=== PATIENT | male | born 1960 | race Caucasian/White ===

== ENCOUNTER 2018-06-27 22:45 | Observation (INO) ==
[2018-06-27] MEDS ORDERED: 0.9 % Sodium Chloride 1,000 ML IVC ONE (23:01)
--- NOTE | 2018-06-27 23:05 | Emergency Department Note ---
Disposition Clinical Impression: Syncope Qualifiers: Syncope type: unspecified Qualified Code(s): R55 - Syncope and collapse Disposition: Admitted As Inpatient Condition: Fair Forms: ED Satisfaction Letter Time of Disposition: 00:32 Dizziness HPI - General Chief Complaint: ED Syncope Stated Complaint: Black out spells. Time Seen by Provider: 06/27/18 22:50 Source: patient Mode of arrival: ambulatory Limitations: no limitations Nursing Notes Reviewed: Yes Vital Signs Reviewed: Yes - History of Present Illness HPI Narrative: Patient presents to ED with the chief complaint of syncope. Patient states this is been ongoing over the last several years, but is becoming progressively more frequent. States he has had 4 episodes of the last 48 hours. He had 2 episodes last week, so he saw his primary care physician who obtained an EKG and stated it was abnormal, so they sent him to cardiology, who evaluated him and agreed that it was abnormal, so they set him up for a stress test and echocardiogram on the . Patient reports that he was told not to drive until then. 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 He states that they were out eating dinner tonight and he felt an episode come on where he felt like he was going to pass out but did not. The son states about 20 minutes later he actually did have a brief 2-3 second syncopal episode with some shaking of his upper extremity. He woke up immediately after, was not postictal or confused. No witnessed seizure activity. Patient denies any chest pain or shortness of breath before or after the event. He states he does not remember passing out. This time. No head injury. Associated with the event. States he actually feels fine now. No fever or chills, chest pain or shortness of breath. No abdominal pain. No nausea, vomiting or diarrhea. No rashes. Review of Systems: As reviewed in the HPI. All other systems reviewed are negative or normal. Past Medical History - Past Medical History Attestation: Yes The following information was validated with the patient. Source: patient Physical Exam CONSTITUTIONAL: [well appearing, alert and in no acute distress] EYES: [EOMI, clear conjunctiva, PERRLA] HENT: [Normocephalic, atraumatic, moist mucus membranes, normal oropharynx] NECK: [normal inspection, full ROM, trachea midline, no obvious swelling] PULMONARY: [normal lung sounds bilaterally, normal chest rise and fall, no respiratory distress or stridor, no wheezes, no rales, no rhonchi CARDIOVASCULAR: [regular rate, regular rhythm, normal heart sounds, no murmurs, distal extremities are warm and well perfused, no carotid bruits] GASTROINSTESTINAL: [soft, non-tender, non-rigid, non-distended, no guarding, no rebound, normal bowel sounds] GENITOURINARY/RECTAL: [deferred] NEUROLOGIC: [Alert, oriented x3, normal speech, moves all extremities] EXTREMITIES: [Normal inspection, full ROM, no tenderness, no pedal edema, normal capillary refill] MUSCULOSKELETAL: [no gross deformities, atraumatic] SKIN: [No cyanosis, no diaphoresis, normal color, warm, no rash] PSYCHIATRIC: [normal mood and affect] Course Vital Signs Temperature 97.7 F 06/27/18 22:49 Pulse Rate 126 06/27/18 22:49 Respiratory Rate 18 06/27/18 22:49 Blood Pressure 148/87 06/27/18 22:49 O2 Sat by Pulse Oximetry 97 06/27/18 22:49 Temperature 97.7 F 06/27/18 23:19 Pulse Rate 106 06/27/18 23:28 Respiratory Rate 18 06/27/18 23:19 Blood Pressure 117/77 06/27/18 23:28 O2 Sat by Pulse Oximetry 97 06/27/18 23:19 Oxygen Delivery Oxygen Delivery Room Air Dizziness - Lab Data Result diagrams: 06/27/18 23:10 06/27/18 23:10 Lab Results 06/27/18 06/27/18 Range/Units 23:10 23:10 WBC 8.2 (4.3-11.1) K/mcL RBC 5.05 (4.19-5.50) M/mcL Hgb 14.8 (12.9-16.9) g/dL Hct 43.9 (37.5-50.1) % MCV 86.9 (83.0-100.0) fL MCH 29.3 (28.0-33.3) pg MCHC 33.7 (31.6-35.5) g/dL RDW 13.4 (11.5-14.5) % Plt Count 252 (140-400) K/mcL MPV 10.8 (9.4-12.4) fL Immature Gran % 0.4 (0-4) % Seg Neutrophils % 63.8 % Lymphocytes % 25.3 % Monocytes % 7.0 % Eosinophils % 2.9 % Basophils % 0.6 % Neutrophils # 5.2 (1.6-8.9) K/mcL Lymphocytes # 2.1 (0.6-4.6) K/mcL Monocytes # 0.6 (0.0-1.3) K/mcL Eosinophils # 0.2 (0.0-0.6) K/mcL Basophils # 0.1 (0.0-0.2) K/mcL Sodium 130 L (136-145) mEq/L Potassium 4.0 (3.5-5.1) mEq/L Chloride 96 L (98-107) mEq/L Carbon Dioxide 26 (23-29) mEq/L BUN 16 (6-20) mg/dL Creatinine 1.07 (0.70-1.30) mg/dL Est GFR ( Amer) > 60 (> 60) Est GFR (Non-Af Amer) > 60 (> 60) BUN/Creatinine Ratio 15 (6-26) Glucose 334 H (70-105) mg/dL Calculated Osmolality 284 (280-300) Calcium 9.3 (8.6-10.3) mg/dL Troponin I < 0.03 (< 0.04) ng/mL
--- NOTE | 2018-06-27 23:06 | Emergency Department Note ---
Disposition Clinical Impression: Syncope Qualifiers: Syncope type: unspecified Qualified Code(s): R55 - Syncope and collapse Disposition: Still a Patient General Adult HPI - General Chief complaint: ED Syncope Stated complaint: Black out spells. Time Seen by Provider: 06/27/18 22:50 Source: patient Nursing Notes Reviewed: Yes Vital Signs Reviewed: Yes - History of Present Illness HPI Narrative: Attestation note: Patient was seen with the emergency medicine resident/nurse practitioner/physician medical support assistant/transitional resident/medical student: Dr. JONATHAN BETTENCOURT I have personally performed a face to face evaluation on this patient. I have reviewed and agree with history and physical examination patient management and disposition. Briefly the salient points of the case are as follows: 57-year-old male presents with "blacking out". 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 Patient is asymptomatic now last time was when he was eating at a local [place] place and "slumped out". There is no trauma patient is awake and alert GCS 15 ambulates appropriately without assistance. Patient is tachycardic 11 EKG screening labs and likely admission. Disposition pending Course Vital Signs Temperature 97.7 F 06/27/18 22:49 Pulse Rate 126 06/27/18 22:49 Respiratory Rate 18 06/27/18 22:49 Blood Pressure 148/87 06/27/18 22:49 O2 Sat by Pulse Oximetry 97 06/27/18 22:49 Temperature 97.7 F 06/27/18 22:49 Pulse Rate 126 06/27/18 22:49 Respiratory Rate 18 06/27/18 22:49 Blood Pressure 148/87 06/27/18 22:49 O2 Sat by Pulse Oximetry 97 06/27/18 22:49 Oxygen Delivery Oxygen Delivery Room Air
[2018-06-28] LABS: BUN/Creatinine Ratio 15 (6-26); Blood Urea Nitrogen 16 mg/dL (6-20); Calcium 9.3 mg/dL (8.6-10.3); Carbon Dioxide 26 mEq/L (23-29); Chloride 96 mEq/L (98-107); Glucose 334 mg/dL (70-105); Osmolality,Calculated 284 (280-300); Sodium 130 mEq/L (136-145); Troponin I < 0.03 ng/mL (< 0.04); eGFR For Non-African Americans > 60 (> 60)
[2018-06-28 00:07] LABS: Basophils # 0.1 K/mcL (0.0-0.2); Basophils % 0.6 %; Eosinophils # 0.2 K/mcL (0.0-0.6); Eosinophils % 2.9 %; Hematocrit 43.9 % (37.5-50.1); Hemoglobin 14.8 g/dL (12.9-16.9); Immature Granulocytes % 0.4 % (0-4); Lymphocytes # 2.1 K/mcL (0.6-4.6); Lymphocytes % 25.3 %; Mean Corpuscular HGB Conc 33.7 g/dL (31.6-35.5); Mean Corpuscular Hemoglobin 29.3 pg (28.0-33.3); Mean Corpuscular Volume 86.9 fL (83.0-100.0); Mean Platelet Volume 10.8 fL (9.4-12.4); Monocytes # 0.6 K/mcL (0.0-1.3); Neutrophils # 5.2 K/mcL (1.6-8.9); Platelet Count 252 K/mcL (140-400); Red Blood Count 5.05 M/mcL (4.19-5.50); Red Cell Distribution Width 13.4 % (11.5-14.5); Segmented Neutrophils % 63.8 %
[2018-06-28 00:38] LABS: Bilirubin,Urine Negative (Negative); Blood,Urine Negative (Negative); Clarity,Urine Clear (Clear); Color,Urine Yellow (Yellow); Glucose,Urine (UA) >=1000 mg/dL (Normal); Ketones,Urine Negative (Negative); Leukocyte Esterase,Urine Negative (Negative); Nitrite,Urine Negative (Negative); Protein,Urine 30 mg/dL (Neg-Trace); Specific Gravity,Urine 1.006 (1.010-1.025); Urobilinogen,Urine Normal (Normal)
[2018-06-28 00:40] LABS: Bacteria,Urine None Seen per hpf (None-Few); Hyaline Casts,Urine None Seen per lpf (None-Few); RBC,Urine 0-3 per hpf (0-3); Squamous Epithelial Cell,Urine None Seen per lpf (None-Few); WBC,Urine 0-3 per hpf (0-3)
[2018-06-28] MEDS ORDERED: Naloxone 0.4 MG/ML INJ IVP PRN (10:09)
--- NOTE | 2018-06-28 10:16 | Internal Med History&Physical ---
Date of Encounter: 06/28/18 Time of Encounter: 08:30 Internal Medicine - H&P: HPI Chief complaint: syncope Admitted From: Home Plans for Post Hospital Care: Home History of present illness: Mr. Acevedo is a 57 year old male with a PMH of obesity and diabetes. He presents to [facility] today following a syncopal event while eating at a restaurant. He has had a total of 3-4 syncopal events over the last 2 weeks. She notes that he has yet to have formal evaluation of syncope. He did note that he was seeing his payroll benefits clerk and primary care provider who wanted to do an echocardiogram and stress test on the of this month. However he is now being admitted for observation for evaluation of recurrent syncopal events. He reports that he was sitting at the table eating dinner and passed out without any prodrome of symptoms. Denies any headaches, dizziness, facial droop, dysarthria, palpitations, tachycardia arrhythmias, chest pain, shortness of breath, diaphoresis, nausea, vomiting, diarrhea, paresthesias or hemiplegia. He denies any aggravating or alleviating factors. He reports that he had a brief loss of consciousness for approximately 2-3 seconds that he does not remember syncopal event. He denies any head trauma. Furthermore, he denies any headaches, confusion, lethargy upon awakening. He is being admitted for workup of syncope and will be placed in observation status. Past Med Surg Social Fam HX - Past Medical History Medical history: diabetes, hyperlipidemia Psychiatric history: no psych history - Social History Smoking Status: Former smoker Smokeless Tobacco Status: No Alcohol use: occasionally Drug use: none - Family History Father Hx Family Cardiac Disorders: Yes (RI, CABG) Hx Family Respiratory Disorders: No Hx Family Cancer: No Hx Family GI Disorders: No Hx Family Genitourinary Disorders: No Hx Family Endocrine Disorder: Yes (DM) Hx Family Musculoskeletal Disorders: No Hx Family Neuromuscular Disorders: No Hx Family Neurologic Disorders: No Hx Family HEENT Disorders: No Hx Family Autoimmune Disorders: No Hx Family Reproductive Disorders: No Hx Family Psychosocial Disorders: No Hx Family Medical Disorders: No Internal Medicine - H&P: Meds Atorvastatin DAILY 06/28/18 [History] Clonazepam BID 06/28/18 [History] Dulaglutide [Trulicity] 1.5 mg SQ QWEEK 06/28/18 [History] Empagliflozin [Jardiance] 10 mg PO DAILY 06/28/18 [History] GlipiZIDE DAILY 06/28/18 [History] Lisinopril DAILY 06/28/18 [History] Sertraline DAILY 06/28/18 [History] metFORMIN [Glucophage] 500 mg PO 0800 06/28/18 [History] Allergy/AdvReac Type Severity Reaction Status Date / Time No Known Allergies Allergy Verified 06/28/18 01:01 All Systems PM: A 10-system review of systems was performed and is negative for pertinent findings except as documented above in the HPI. - Constitutional Constitutional: no anorexia, no chills, no excessive sweating, no fatigue, no fe gray(s), no malaise, no night sweats, no weight loss - EENT Eyes: photophobia, no blurry vision, no loss of peripheral vision, no loss of vision, no seeing flashes, no spots in vision, no tunnel vision Nose, mouth and throat: no dysphagia, no nasal discharge, no neck pain, no sore throat - Cardiovascular Cardiovascular ROS IM: lightheadedness, syncope, no chest pain, no diaphoresis, no dyspnea, no dyspnea on exertion, no edema, no irregular heart rhythm, no palpitations - Respiratory Respiratory: no cough, no dyspnea, no wheezing, no excessive phlegm production - Gastrointestinal Gastrointestinal: no abdominal pain, no diarrhea, no hematemesis, no hematochezia, no melena, no nausea, no vomiting - Genitourinary Genitourinary ROS male: no difficulty urinating, no dysuria - Musculoskeletal Musculoskeletal ROS IM: no numbness, no tingling - Neurological Neurological ROS: dizziness, paresthesias, no abnormal gait, no abnormal speech, no behavioral changes, no confusion, no disequilibrium, no focal weakness, no frequent falls, no headache(s), no lack of coordination, no loss of vision, no vertigo, no weakness - Constitutional Vitals: Temp Pulse Resp BP Pulse Ox 97.5 F L 91 14 112/72 96 06/28/18 07:29 06/28/18 07:29 06/28/18 07:29 06/28/18 07:29 06/28/18 07:29 General appearance: Present: A&O X 3 Exam: see exam - Head Head exam: Present: atraumatic, normocephalic - Eye Eye exam: Present: PERRL, conjuntiva pink, sclera anicteric Pupils: Present: PERRL - Neck Neck exam general surgery: Present: supple, trachea midline. Absent: lymphadenopathy - Respiratory Respiratory exam: Present: CTAB. Absent: accessory muscle use, rales, rhonchi, wheezes - Cardiovascular Cardiovascular exam: Present: RRR, +S1, +S2. Absent: diastolic murmur, gallop, JVD, rubs, systolic murmur Additional comments: no identified carotid bruits - Expanded Cardiovascular Exam Peripheral pulses: 2+: Carotid (L) PM, Carotid (R) PM, Radial (L), Radial (R), Posterior Tibialis (L), Posterior Tibialis (R), Dorsalis Pedis (L) PM, Dorsalis Pedis (R) PM - GI/Abdominal GI/Abdominal exam: Present: normal bowel sounds, soft, no peritoneal signs. Absent: distended, tenderness - Extremities Exam Extremities exam: Present: warm, radial pulses palpable and symmetrical. Absent: calf tenderness, cyanotic, pedal edema - Neurological Exam Neurological exam: Present: CN II-XII intact, oriented X3, no focal deficits. Absent: pronater drift, facial droop, speech deficit - Expanded Neurological Exam Neurological exam expanded: Absent: expressive aphasia, receptive aphasia Patient oriented to: Present: person, place, time Speech: Present: fluid speech Cranial Nerves: EOM's intact PM: Normal, gag reflex PM: Normal, nystagmus PM: Normal, tongue deviation PM: Normal Cerebellar function: finger to nose: Normal, heel to díaz: Normal Upper motor neuron: Babinski sign: Normal, Canelo neglect: Normal, pronator drift: Normal, sensory extinction: Normal Neuro motor strength exam: LUE: 5, RUE: 5, LLE: 5, RLE: 5 Coma Scale Eye Opening: Spontaneous Coma Scale Motor Response: Obeys Commands Coma Scale Verbal Response: Oriented Coma Scale Total: 15 - Skin Skin exam: Present: dry, intact Internal Med - H&P Results - Labs CBC & Chem 7: 06/27/18 23:10 06/27/18 23:10 Labs: Short CBC 06/27/18 Range/Units 23:10 WBC 8.2 (4.3-11.1) K/mcL Hgb 14.8 (12.9-16.9) g/dL Hct 43.9 (37.5-50.1) % Plt Count 252 (140-400) K/mcL Neutrophils # 5.2 (1.6-8.9) K/mcL BMP 06/27/18 23:10 Sodium 130 L Potassium 4.0 Chloride 96 L Carbon Dioxide 26 BUN 16 Creatinine 1.07 Glucose 334 H Calcium 9.3 Cardiac Enzymes 06/27/18 Range/Units 23:10 Troponin I < 0.03 (< 0.04) ng/mL Urine 06/28/18 Range/Units 00:20 Urine Color Yellow (Yellow) Urine Clarity Clear (Clear) Urine pH 6.0 (5.0-8.0) pH Units Ur Specific [place] 1.006 L (1.010-1.025) Urine Protein 30 H (Neg-Trace) mg/dL Urine Glucose (UA) >=1000 H (Normal) mg/dL - EKG Data -: EKG Interpreted by Myself EKG shows normal: sinus rhythm Rate: normal - EKG Data Prior EKG available for review: yes When compared to previous EKG: there is no significant change Interpretation IM: normal EKG - Impressions ITS Impressions Chest X-Ray 06/27/18 23:01 IMPRESSION: No acute cardiopulmonary process. D/ / Mikel Mejia / Mikel Sessions Interpreting Provider: Mikel Mejia - Assessment and plan (1) Syncope Current Visit: Yes Status: Acute Assessment and plan: r/o carotid sinus, structural cardiac, and neurally mediated syncope has had multiple episodes over the last few weeks; no formal w/u for these tyree nts denies occurence with exertion, no prodrome denies any postictal s/sx including confusion, memory-loss, h/a, nausea or lethargy etiology of syncope remains unclear obtain BRAVO to evaluate cardiac structure B/L carotid doppler negative for orthostatis review of medications find no offending meds up with assist Qualifiers: Syncope type: unspecified Qualified Code(s): R55 - Syncope and collapse (2) Obesity due to excess calories Current Visit: Yes Status: Acute Assessment and plan: Discussed lifestyle modifications Qualifiers: Obesity classification: adult class 3 (BMI >= 40) Serious obesity com orbidity presence: without serious comorbidity Body mass index: BMI 40.0-44.9 Qualified Code(s): E66.01 - Morbid (severe) obesity due to excess calories; Z68.41 - Body mass index (BMI) 40.0-44.9, adult (3) DM (diabetes mellitus) Current Visit: Yes Status: Acute Assessment and plan: LSSIC AC/HS FSBG Diabetic diet Qualifiers: Diabetes mellitus type: type 2 Diabetes mellitus half-way insulin use: with half-way use Diabetes mellitus complication status: without complication Qualified Code(s): E11.9 - Type 2 diabetes mellitus without complications; Z79.4 - long term care pharmacist (current) use of insulin - Time Spent With Patient Total time spent is greater than 50% in coordination of care (as documented) at patient's floor/unit and/or counseling patient: less than 15 minutes
[2018-06-28] MEDS ORDERED: *HR* Dextrose 50 % in Water (Syg) 50 ML SYRINGE IVP PRN (10:59)
[2018-06-28] MEDS ORDERED: Dextrose Gel 15 GM/37.5 ML TUBE PO PRN ×2 (10:59)
[2018-06-28] MEDS ORDERED: D5% in Water 1,000 ML IVC PRN (10:59)
--- NOTE | 2018-06-28 15:35 | Electrocardiograph Report ---
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
[2018-06-28] MEDS: Insulin LISPRO 300 UNITS/3 ML VIAL SQ SCH ×2 (17:30→17:41)
[2018-06-28] MEDS ORDERED: Insulin LISPRO 300 UNITS/3 ML VIAL SQ SCH (21:00)
[2018-06-29 04:59] LABS: Hematocrit 43.6 % (37.5-50.1); Hemoglobin 14.3 g/dL (12.9-16.9); Mean Corpuscular HGB Conc 32.8 g/dL (31.6-35.5); Mean Corpuscular Hemoglobin 28.8 pg (28.0-33.3); Mean Corpuscular Volume 87.9 fL (83.0-100.0); Mean Platelet Volume 10.7 fL (9.4-12.4); Platelet Count 250 K/mcL (140-400); Red Blood Count 4.96 M/mcL (4.19-5.50); Red Cell Distribution Width 13.5 % (11.5-14.5)
[2018-06-29 05:23] LABS: BUN/Creatinine Ratio 17 (6-26); Blood Urea Nitrogen 16 mg/dL (6-20); Calcium 9.2 mg/dL (8.6-10.3); Carbon Dioxide 25 mEq/L (23-29); Chloride 101 mEq/L (98-107); Glucose 183 mg/dL (70-105); Osmolality,Calculated 288 (280-300); Potassium 3.8 mEq/L (3.5-5.1); Sodium 136 mEq/L (136-145); eGFR For Non-African Americans > 60 (> 60)
[2018-06-29] MEDS: *HR* Enoxaparin 40 MG/0.4 ML SYRINGE SQ SCH (05:56)
--- NOTE | 2018-06-29 07:37 | Event Note ---
Date of Encounter: 06/29/18 Time of Encounter: 06:00 Called by nurse for patient heart rate in 200's, EKG immediately ordered and crash cart requested. Dr Lockwood and myself to bedside. EKG prior to our arrival captured heart rate of 229. Upon our arrival repeat EKG showed heart rate had reduced back to 100. Vitals stable. Patient experienced only dizziness during episode. Denies chest pain, shortness of breath, nausea, or diaphoresis. [place] to remain at bedside with crash cart near room. Patient on telemetry, asymptomatic at this time. EKG's reviewed with Dr Lockwood. Day team notified.
[2018-06-29] MEDS ORDERED: clonazePAM 0.5 MG TABLET PO PRN (09:00)
[2018-06-29] MEDS: Insulin LISPRO 300 UNITS/3 ML VIAL SQ SCH ×3 (09:10→17:50)
--- NOTE | 2018-06-29 09:59 | Internal Med Progress Note ---
Hospitalist Progress Note - Encounter Date of Encounter: 06/29/18 Time of Encounter: 09:57 - Subjective Interval History: Patient seen and examined at bedside today, is resting comfortably in bed without any acute distress. Overnight he did have an event of supraventricular tachycardia with heart rate in the 220s. This was self-limited and resolved wit hout intervention and patient is now sinus tachycardia. Discussed case with cardiology Dr. Chuck Dunn; plan is to proceed with stress test part to this morning and cardiology will see in consultation this afternoon. - Exam Vitals: Temp Pulse Resp BP Pulse Ox 98.3 F 98 14 116/79 93 06/29/18 07:11 06/29/18 07:11 06/29/18 07:11 06/29/18 07:11 06/29/18 07:11 Exam: PHYSICAL EXAMINATION: GENERAL: The patient is an obese male, NAD 3, HEENT: Head is normocephalic and atraumatic. EOMI, PERRLA NECK: Supple. No carotid bruits. No lymphadenopathy or thyromegaly. LUNGS: Clear to auscultation B/L AP and L. HEART: Tachycardic rate and regular rhythm, S1, S2 without murmurs rubs, gallops. ABDOMEN: Soft, nontender, and nondistended. Positive bowel sounds. No hepatosplenomegaly was noted. EXTREMITIES: Without any cyanosis, or edema. NEUROLOGIC: Cranial nerves II through XII are grossly intact. SKIN: No ulceration or induration present. - Assessment and Plan (1) Syncope Current Visit: Yes Status: Acute Assessment and Plan: r/o carotid sinus, structural cardiac, and neurally mediated syncope has had multiple episodes over the last few weeks; no formal w/u for these events denies occurence with exertion, no prodrome denies any postictal s/sx including confusion, memory-loss, h/a, nausea or lethargy etiology of syncope remains unclear obtain BRAVO to evaluate cardiac structure B/L carotid doppler negative for orthostatis review of medications find no offending meds up with assist 06/29--syncope likely cardiac mediated. Patient had episode of supraventricular tachycardia overnight with heart rate in the 220s. During this event he describes near syncopal-type presentation and reports that this has been occurring for the last couple of weeks prior to syncopal events. I have discussed his case with open source developer Dr. Chuck Dunn who is seeing in consultation, recommendations appreciated. Patient will undergo prior to a stress test this afternoon. B/L carotid Dopplers with nonstenotic plaque, TTE pending. (2) Obesity due to excess calories Current Visit: Yes Status: Acute Assessment and Plan: Discussed lifestyle modifications (3) DM (diabetes mellitus) Current Visit: Yes Status: Acute Assessment and Plan: MSSIC AC/HS FSBG Diabetic diet DVT Prophylaxis: SC Lovenox - Time Spent with Patient Total time spent is greater than 50% in coordination of care (as documented) at patient's floor/unit and/or counseling patient: less than 15 minutes Plan of Care Discussed with: patient Internal Medicine: Result - Labs CBC & Chem 7: 06/29/18 03:44 06/29/18 03:44 Labs: Short CBC 06/29/18 Range/Units 03:44 WBC 7.6 (4.3-11.1) K/mcL Hgb 14.3 (12.9-16.9) g/dL Hct 43.6 (37.5-50.1) % Plt Count 250 (140-400) K/mcL BMP 06/29/18 03:44 Sodium 136 Potassium 3.8 Chloride 101 Carbon Dioxide 25 BUN 16 Creatinine 0.93 Glucose 183 H Calcium 9.2 Cardiac Enzymes 06/28/18 Range/Units 11:08 Troponin I < 0.03 (< 0.04) ng/mL Consult Discharge Plan - Plan Referrals: Steve Larios MD [Primary Care Provider] - 07/04/18 3:00 pm (1) Syncope Qualifiers: Syncope type: unspecified Qualified Code(s): R55 - Syncope and collapse (2) Obesity due to excess calories Qualifiers: Obesity classification: adult class 3 (BMI >= 40) Serious obesity comorbidity presence: without serious comorbidity Body mass index: BMI 40.0-44.9 Qualified Code(s): E66.01 - Morbid (severe) obesity due to excess calories; Z68.41 - Body mass index (BMI) 40.0-44.9, adult (3) DM (diabetes mellitus) Qualifiers: Diabetes mellitus type: type 2 Diabetes mellitus senior care insulin use: with senior care use Diabetes mellitus complication status: without complication Qualified Code(s): E11.9 - Type 2 diabetes mellitus without complications; Z79.4 - prison (current) use of insulin
--- NOTE | 2018-06-29 11:25 | Electrophysiology Consult Note ---
Date of Encounter: 06/29/18 Time of Encounter: 11:15 Assessment and Plan (1) SVT (supraventricular tachycardia) Current Visit: Yes Status: Acute SVT, likely AVNRT. This is probable etiology of syncope. Discussed options for treatment, including medical therapy and RF ablation. Will treat medically for now, BBlocker OK, and follow up as oupt. to discuss ablation. Discussion w patient/family: The assessment and plan as outlined above was discussed with the patient and/or family members who expressed understanding and agreement. All questions were answered. Thank you for involving us in the care of your patient. Please call with any questions. History of Present Illness Consult date: 06/29/18 Requesting physician: Fish Cameron Consult reason: SVT Chief complaint: Syncope History of present illness: Mr. 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 He had recurrent episode of syncope and therefore presented to ED. While being monitored in hospital he has and episode of SVT that was self terminated. This episode produced symptoms that were similar to prior syncope episodes. Past Med Surg Social Fam HX - Past Medical History Medical history: diabetes, hyperlipidemia Psychiatric history: no psych history - Social History Smoking Status: Former smoker Smokeless Tobacco Status: No Alcohol use: occasionally Drug use: none - Family History Father Hx Family Cardiac Disorders: Yes ([place], CABG) Hx Family Respiratory Disorders: No Hx Family Cancer: No Hx Family GI Disorders: No Hx Family Genitourinary Disorders: No Hx Family Endocrine Disorder: Yes (DM) Hx Family Musculoskeletal Disorders: No Hx Family Neuromuscular Disorders: No Hx Family Neurologic Disorders: No Hx Family HEENT Disorders: No Hx Family Autoimmune Disorders: No Hx Family Reproductive Disorders: No Hx Family Psychosocial Disorders: No Hx Family Medical Disorders: No Medications and Allergies Aspirin [Adult Aspirin] 81 mg PO DAILY 06/28/18 [History] Atorvastatin [Lipitor] 40 mg PO HS 06/28/18 [History] Cholecalciferol (D-3) [Vitamin D] 1,000 unit PO DAILY 06/28/18 [History] Dulaglutide [Trulicity] 1.5 mg SQ QWEEK 06/28/18 [History] Glimepiride [Amaryl] 1 mg PO DAILY 06/28/18 [History] Lisinopril [Zestril] 10 mg PO DAILY 06/28/18 [History] Sertraline [Zoloft] 50 mg PO DAILY 06/28/18 [History] clonazePAM [Klonopin] 0.5 mg PO BID PRN 06/28/18 [History] metFORMIN [Glucophage] 1,000 mg PO BID 06/28/18 [History] Allergy/AdvReac Type Severity Reaction Status Date / Time No Known Allergies Allergy Verified 06/28/18 01:01 All Systems Review: The remainder of the systems were reviewed and are negative Physical Examination General: Conversant, No Apparent Distress HEENT: Atraumatic, Normocephaly, Mucus Membranes Moist Neck: No JVD, Normal carotid pulses Cardiac: Reg Rate and Rhythm, Normal S1 and S2, No Murmur Lungs: Normal Breath Sounds, No Wheeze, Rales, Rhonchi Neuro: Alert and responsive, No focal deficits noted Abdomen: Soft, Non-Tender Skin: No rashes noted on visualized skin Musculoskeletal: No Chest Wall Tenderness Extremities: No Clubbing, No Cyanosis, No Edema, Normal Pulses Results 06/29/18 03:44 06/29/18 03:44 Lab Results 06/28/18 06/29/18 06/29/18 11:08 03:44 03:44 WBC 7.6 Hgb 14.3 Hct 43.6 Plt Count 250 Sodium 136 Potassium 3.8 Chloride 101 Carbon Dioxide 25 BUN 16 Creatinine 0.93 Glucose 183 H Calcium 9.2 Troponin I < 0.03 - EKG Interpretation EKG results cardiology: personally reviewed (SVT with heart rate over 200, c/w 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
[2018-06-29] MEDS ORDERED: Insulin LISPRO 300 UNITS/3 ML VIAL SQ SCH (21:00)
[2018-06-30] MEDS: *HR* Enoxaparin 40 MG/0.4 ML SYRINGE SQ SCH (06:18)
[2018-06-30] MEDS: Insulin LISPRO 300 UNITS/3 ML VIAL SQ SCH ×2 (08:52→11:51)
[2018-06-30 11:28] VITALS: BP 107/73
--- NOTE | 2018-06-30 12:05 | Discharge Summary ---
- NOTES TO OUTPATIENT PROVIDER Notes to Outpatient Provider: Abnormal stress; offered inpatient evaluation; refused. Requesting second opinion in [place] at [facility]. Please discuss f/u and second opinion Orders not resulted at time of discharge: Pending orders 06/28/18 10:53 NM zora perf SPECT multi [NM] Routine 06/29/18 06:15 ECG 12 lead ECG [ECG] Stat 06/29/18 06:16 ECG 12 lead ECG [ECG] Stat Date of Encounter: 06/30/18 Time of Encounter: 12:02 - Discharge Diagnosis (1) Syncope Priority: Primary Status: Acute Assessment and Plan: 2/2 SVT Have outpatient f/u with cardiology BB for rate control at d/c; will get new Rx Qualifiers: Syncope type: unspecified Qualified Code(s): R55 - Syncope and collapse (2) Obesity due to excess calories Priority: Secondary Status: Acute Assessment and Plan: discussed dietary changes and weight-loss Qualifiers: Obesity classification: adult class 3 (BMI >= 40) Serious obesity comorbidity presence: without serious comorbidity Body mass index: BMI 40.0- 44.9 Qualified Code(s): E66.01 - Morbid (severe) obesity due to excess c alories; Z68.41 - Body mass index (BMI) 40.0-44.9, adult (3) DM (diabetes mellitus) Priority: Secondary Status: Acute Assessment and Plan: appears to be non compliant with mean avg blood glucose 229 in 05/02 discussed the need for TGC and dietary compliance Qualifiers: Diabetes mellitus type: type 2 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 Acevedo is a 57 year old male who was admitted with symptomatic SVT. Underwent stress test and was found to have ischemia. Recommend further workup and inpatient evaluation. Patient declining wishing to seek a second opinion at [facility]. Cases d/w Dr. Chuck Dunn cardiology who notes that while he does have ischemia it is not active ACS with normal troponins and unremarkable ECG findings. He does agree that a second opinion at [facility] would be okay as long as patient is compliant and does receive evaluation. This was d/w the patient who agrees to f/u at [facility]. Of note he is okay to d/c with rx for BB for SVT. No return of events since starting BB. He has been instructed to return to the ED should his s/sx return. Discharge discussed with: patient, nurse - Time Spent with Patient Total time spent providing and/or coordinating discharge services: Less than 30 minutes - Discharge Medications Prescriptions: Metoprolol [Lopressor] 12.5 mg PO BID 30 Days #15 tablet Home Medications: Aspirin [Adult Aspirin] 81 mg PO DAILY 06/28/18 [History] Atorvastatin [Lipitor] 40 mg PO HS 06/28/18 [History] Cholecalciferol (D-3) [Vitamin D] 1,000 unit PO DAILY 06/28/18 [History] Dulaglutide [Trulicity] 1.5 mg SQ QWEEK 06/28/18 [History] Glimepiride [Amaryl] 1 mg PO DAILY 06/28/18 [History] Lisinopril [Zestril] 10 mg PO DAILY 06/28/18 [History] Sertraline [Zoloft] 50 mg PO DAILY 06/28/18 [History] clonazePAM [Klonopin] 0.5 mg PO BID PRN 06/28/18 [History] metFORMIN [Glucophage] 1,000 mg PO BID 06/28/18 [History] Metoprolol [Lopressor] 12.5 mg PO BID 30 Days #15 tablet 06/30/18 [Rx] Allergies/Adverse Reactions: Allergy/AdvReac Type Severity Reaction Status Date / Time No Known Allergies Allergy Verified 06/28/18 01:01 Date of admission: 06/28/18 00:34 Primary care physician: Steve Larios MD Consults: 06/29/18 07:22 Consult to Cardiology [CONS] Stat Comment: Consulting Provider: Cardiology Yumi Reason for Consult: heart rate of 229 Call Completed: No 06/29/18 13:46 Consult to Cardiology [CONS] Routine Comment: Consulting Provider: Eryn Eason Reason for Consult: abnormal stress Time Notified: 13:46 Call Completed: Yes Discharging clinician: Fish Cameron Anticipated date of discharge: 06/30/18 - Constitutional Vitals: Temp Pulse Resp BP Pulse Ox 98.6 F 86 16 107/73 95 06/30/18 11:27 06/30/18 11:27 06/30/18 11:27 06/30/18 11:27 06/30/18 11:27 General appearance: Present: A&O X 3 Exam: PHYSICAL EXAMINATION: GENERAL: The patient is an obese male, NAD 3, HEENT: Head is normocephalic and atraumatic. EOMI, PERRLA NECK: Supple. No carotid bruits. No lymphadenopathy or thyromegaly. LUNGS: Clear to auscultation B/L AP and L. HEART: regular rate and regular rhythm, S1, S2 without murmurs rubs, gallops. ABDOMEN: Soft, nontender, and nondistended. Positive bowel sounds. No hepatosplenomegaly was noted. EXTREMITIES: Without any cyanosis, or edema. NEUROLOGIC: Cranial nerves II through XII are grossly intact. SKIN: No ulceration or induration present. - Patient Status Disposition: Home, Self-Care Condition: Fair Functional capacity at discharge: independent ambulation Overall status at discharge: patient is progressing back to baseline - Discharge Instructions Instructions: Syncope (DC), Diabetes Mellitus Type 2 in Adults (DC) Follow Up With: Steve Larios MD [Primary Care Provider] - 07/04/18 3:00 pm - Diet and Activity Activity: increase activity as tolerated, resume usual activities as tolerated Diet: diabetic diet, low fat, low cholesterol, low salt diet
--- NOTE | 2018-06-30 12:28 | Cardiology Progress Note ---
Date of Encounter: 06/30/18 Time of Encounter: 08:00 Assessment and Plan (1) Abnormal stress test Current Visit: Yes Status: Acute Patient admitted with near syncope. Troponin negative x3. ECG shows RBBB. Denies chest pain/discomfort/arm/jaw neck pain. Denies activity intolerance. Cardiology consulted for abnormal stress test-- moderate anterior and anterolateral ischemia with TID (1.36) and SDS=5, gated EF=32% TTE 06/28/18: LVEF 55-60%, mild cLVH, mild LVDD, normal RV structure and function, normal wall motion Given significantly abnormal stress test, recommend LH as inpatient. Long discussion with patient regarding plan including A/R/B of LHC and testing results. At this time he prefers to obtain second opinion at [facility]. Recommend asa, statin, BB and prn NTG. I have recommended patient to establish with Cardiology this week given significant abnormality on stress. Recommend ED evaluation with prolonged or severe chest pain symptoms, he agrees. The patient was discussed and reviewed with Dr. Chuck Dunn who agrees with plan as stated above. (2) SVT (supraventricular tachycardia) Current Visit: Yes Status: Acute SVT, likely AVNRT. This is probable etiology of syncope. Discussed options for treatment, including medical therapy and RF ablation. Will treat medically for now, BBlocker OK, and follow up as oupt. to discuss ablation. No recurrent episodes of ANVRT since addition of BB overnight. Will coordinate outpatient follow-up with Dr. Chuck Dunn. Discussion w patient/family: The assessment and plan as outlined above was discussed with the patient and/or family members who expressed understanding and agreement. All questions were answered. Thank you for involving us in the care of your patient. Please call with any questions. The patient was discussed and reviewed with Dr. Chuck Dunn; changes to be made accordingly. Subjective Principal diagnosis: Near syncope, AVNRT Interval history: Seen and examined. No complaints overnight. No recurrent episodes of pre-syncope since addition of betablocker. No chest pain/discomfort. No dyspnea. Objective Vital Signs, Last 4 Hours Temp Pulse Resp BP Pulse Ox 06/30/18 11:27 98.6 F 86 16 107/73 95 General: Conversant, No Apparent Distress, Other (obese) HEENT: Atraumatic, Normocephaly, Mucus Membranes Moist Cardiac: Reg Rate and Rhythm, Normal S1 and S2 Lungs: Normal Breath Sounds Neuro: Alert and responsive Abdomen: Soft Skin: No rashes noted on visualized skin Musculoskeletal: No Chest Wall Tenderness Extremities: No Edema, Normal Pulses Results 06/29/18 03:44 06/29/18 03:44 Active Medications Atorvastatin Calcium (Lipitor) 40 mg PO DAILY [facility] Stop: 12/29/18 09:01 Last Admin: 06/30/18 08:51 Dose: 40 mg Clonazepam (Klonopin) 0.5 mg PO BID PRN PRN Reason: Anxiety Stop: 12/29/18 09:01 Last Admin: 06/29/18 08:23 Dose: 0.5 mg Dextrose/Water (Dextrose 50% (Syg)) 25 ml IVP AD PRN PRN Reason: Hypoglycemia Stop: 12/28/18 11:00 Enoxaparin Sodium (Lovenox) 40 mg SQ 0700 [facility]; Protocol Stop: 12/29/18 07:01 Last Admin: 06/30/18 06:18 Dose: Not Given Glucagon (Glucagen) 1 mg IM ONCE PRN PRN Reason: Hypoglycemia Stop: 12/28/18 11:00 Glucose (Gluctose) 15 gm PO ONCE PRN PRN Reason: Hypoglycemia Stop: 12/28/18 11:00 Glucose (Gluctose) 30 gm PO ONCE PRN PRN Reason: Hypoglycemia Stop: 12/28/18 11:00 Dextrose (Dextrose 5%) 1,000 mls @ 100 mls/hr IVC .Q10H PRN PRN Reason: HYPOGLYCEMIA Stop: 12/28/18 11:00 Insulin Human Lispro (Humalog) 0 units SQ HS [facility]; Protocol Stop: 12/29/18 21:01 Last Admin: 06/29/18 21:06 Dose: 4 units Insulin Human Lispro (Humalog) 0 units SQ TIDAC [facility]; Protocol Stop: 12/29/18 11:31 Last Admin: 06/30/18 11:51 Dose: 12 units Lisinopril (Zestril) 10 mg PO DAILY [facility] Stop: 12/28/18 11:01 Last Admin: 06/30/18 08:51 Dose: 10 mg Metoprolol Tartrate (Lopressor) 12.5 mg PO BID [facility] Stop: 12/29/18 09:01 Last Admin: 06/30/18 08:51 Dose: 12.5 mg Naloxone HCl (Narcan) 0.4 mg IVP Q2MIN PRN PRN Reason: SEE COMMENTS Stop: 12/28/18 10:10 Sertraline HCl (Zoloft) 50 mg PO DAILY [facility] Stop: 12/29/18 09:01 Last Admin: 06/30/18 08:51 Dose: 50 mg - Imaging and Cardiology Stress Test: report reviewed Echo: report reviewed - EKG Interpretation EKG results cardiology: personally reviewed Consult Discharge Plan - Plan Instructions: Syncope (DC), Diabetes Mellitus Type 2 in Adults (DC) Referrals: Steve Larios MD [Primary Care Provider] - 07/04/18 3:00 pm Prescriptions: Metoprolol [Lopressor] 12.5 mg PO BID 30 Days #15 tablet
--- NOTE | 2018-07-01 14:22 | Electrocardiograph Report ---
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
--- NOTE | 2018-07-01 14:23 | Electrocardiograph Report ---
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
== END 2018-06-30 13:28 | disposition home or self-care (01) ==
LOC: EMEROOARM 22:45 → 3BNU 22:45
PROVIDERS: ADMIT Pediatrics; ATTEND Pediatrics

== ENCOUNTER 2019-06-28 03:25 | Observation (INO) ==
[2019-06-28] MEDS: 0.9 % Sodium Chloride 1,000 ML IVC SCH ×2 (04:12→05:00)
[2019-06-28 04:22] LABS: Basophils # 0.1 K/mcL (0.0-0.2); Basophils % 0.6 %; Eosinophils # 0.3 K/mcL (0.0-0.6); Eosinophils % 3.9 %; Hematocrit 41.7 % (37.5-50.1); Hemoglobin 14.2 g/dL (12.9-16.9); Immature Granulocytes % 1.2 % (0-4); Lymphocytes # 2.8 K/mcL (0.6-4.6); Lymphocytes % 33.3 %; Mean Corpuscular HGB Conc 34.1 g/dL (31.6-35.5); Mean Corpuscular Hemoglobin 30.4 pg (28.0-33.3); Mean Corpuscular Volume 89.3 fL (83.0-100.0); Monocytes # 0.6 K/mcL (0.0-1.3); Monocytes % 7.5 %; Neutrophils # 4.5 K/mcL (1.6-8.9); Platelet Count 233 K/mcL (140-400); Red Blood Count 4.67 M/mcL (4.19-5.50); Red Cell Distribution Width 13.4 % (11.5-14.5); Segmented Neutrophils % 53.5 %; White Blood Count 8.4 K/mcL (4.3-11.1)
[2019-06-28 04:25] LABS: VBG HCO3 22 mEq/L (21-27); VBG PCO2 49 mmHg (41-51); VBG PH 7.25 pH Units (7.32-7.42); VBG PO2 43 mmHg (25-50)
[2019-06-28 04:43] LABS: Alanine Aminotransferase 67 Units/L (7-52); Albumin/Globulin Ratio 1.3 (1.1-2.2); Alkaline Phosphatase 114 Units/L (34-104); Aspartate Amino Transferase 47 Units/L (13-39); BUN/Creatinine Ratio 16 (6-26); Bilirubin,Total 0.4 mg/dL (0.3-1.0); Blood Urea Nitrogen 18 mg/dL (6-20); Calcium 8.6 mg/dL (8.6-10.3); Carbon Dioxide 20 mEq/L (23-29); Chloride 88 mEq/L (98-107); Globulin 3.1 g/dL (2.4-3.5); Glucose 454 mg/dL (70-105); Magnesium 1.8 mg/dL (1.6-2.6); Osmolality,Calculated 282 (280-300); Potassium 3.8 mEq/L (3.5-5.1); Sodium 125 mEq/L (136-145); Total Protein 7.1 g/dL (6.4-8.9); Troponin I < 0.03 ng/mL (< 0.04); eGFR For African Americans > 60 (> 60); eGFR For Non-African Americans > 60 (> 60)
[2019-06-28] MEDS ORDERED: 0.9 % Sodium Chloride 1,000 ML IVC ONE (04:56)
[2019-06-28] MEDS ORDERED: *HR* Dextrose 50 % in Water (Syg) 50 ML SYRINGE IVP PRN ×2 (04:57→08:57)
[2019-06-28] MEDS ORDERED: Insulin Human Regular 100 UNIT in 0.9 % Sodium Chloride 100 ML IVC SCH ×2 (05:00→09:01)
[2019-06-28 05:27] LABS: Ethanol 191 mg/dL (Less than 10)
[2019-06-28] MEDS ORDERED: 0.9 % Sodium Chloride 1,000 ML IVC SCH (06:30)
[2019-06-28] MEDS ORDERED: Naloxone 0.4 MG/ML INJ IVP PRN (07:47)
[2019-06-28] MEDS ORDERED: Insulin Regular, Human 100 UNIT/ML IV PRN (08:57)
[2019-06-28] MEDS ORDERED: D5% in 0.45% NACL 1,000 ML IVC PRN (08:57)
[2019-06-28] MEDS ORDERED: D5% in 0.45% NACL w KCl 20 MEQ/1,000 ML MLS IVC SCH (10:45)
[2019-06-28 12:14] LABS: BUN/Creatinine Ratio 16 (6-26); Blood Urea Nitrogen 14 mg/dL (6-20); Calcium 8.3 mg/dL (8.6-10.3); Carbon Dioxide 20 mEq/L (23-29); Chloride 102 mEq/L (98-107); Glucose 170 mg/dL (70-105); Osmolality,Calculated 282 (280-300); Potassium 3.9 mEq/L (3.5-5.1); Sodium 134 mEq/L (136-145); eGFR For African Americans > 60 (> 60); eGFR For Non-African Americans > 60 (> 60)
[2019-06-28] MEDS ORDERED: Insulin DETEMIR 100 UNIT/ML X5UNITS SQ ONE (13:22)
[2019-06-28] MEDS: *HR* Heparin 5,000 UNIT/ML VIAL SQ SCH ×2 (14:28→21:57)
[2019-06-28 15:59] LABS: BUN/Creatinine Ratio 14 (6-26); Blood Urea Nitrogen 12 mg/dL (6-20); Calcium 8.3 mg/dL (8.6-10.3); Carbon Dioxide 24 mEq/L (23-29); Chloride 104 mEq/L (98-107); Glucose 148 mg/dL (70-105); Osmolality,Calculated 285 (280-300); Potassium 4.5 mEq/L (3.5-5.1); Sodium 136 mEq/L (136-145); eGFR For African Americans > 60 (> 60); eGFR For Non-African Americans > 60 (> 60)
[2019-06-28] MEDS: Metoprolol XL (24 HR) Succ 50 MG TAB.ER.24H PO SCH (17:22)
[2019-06-28] MEDS: Insulin LISPRO 300 UNITS/3 ML VIAL SQ SCH ×2 (17:22→21:57)
[2019-06-28] MEDS: clonazePAM 0.5 MG TABLET PO PRN (17:27)
[2019-06-29] MEDS ORDERED: Acetaminophen 325 MG TABLET PO PRN ×2 (02:03→12:33)
[2019-06-29] MEDS ORDERED: Acetaminophen 325 MG TABLET PO ONE (02:08)
[2019-06-29] MEDS: *HR* Heparin 5,000 UNIT/ML VIAL SQ SCH ×3 (06:17→21:04)
[2019-06-29] MEDS: Aspirin Enteric Coated 81 MG Tablet PO SCH (07:32)
[2019-06-29] MEDS: clonazePAM 0.5 MG TABLET PO PRN (07:32)
[2019-06-29] MEDS: Metoprolol XL (24 HR) Succ 50 MG TAB.ER.24H PO SCH (07:32)
[2019-06-29] MEDS: Insulin LISPRO 300 UNITS/3 ML VIAL SQ SCH ×5 (07:33→21:03)
[2019-06-29 08:36] LABS: BUN/Creatinine Ratio 16 (6-26); Blood Urea Nitrogen 14 mg/dL (6-20); Calcium 8.4 mg/dL (8.6-10.3); Carbon Dioxide 21 mEq/L (23-29); Chloride 102 mEq/L (98-107); Glucose 261 mg/dL (70-105); Osmolality,Calculated 286 (280-300); Potassium 4.3 mEq/L (3.5-5.1); Sodium 133 mEq/L (136-145); eGFR For African Americans > 60 (> 60); eGFR For Non-African Americans > 60 (> 60)
[2019-06-29] MEDS ORDERED: Metoprolol XL (24 HR) Succ 50 MG TAB.ER.24H PO SCH (09:00)
[2019-06-29] MEDS ORDERED: Insulin DETEMIR 100 UNIT/ML X5UNITS SQ SCH (21:00)
[2019-06-30] MEDS: *HR* Heparin 5,000 UNIT/ML VIAL SQ SCH ×3 (06:07→20:53)
[2019-06-30] MEDS: Metoprolol XL (24 HR) Succ 50 MG TAB.ER.24H PO SCH (07:39)
[2019-06-30] MEDS: Insulin LISPRO 300 UNITS/3 ML VIAL SQ SCH ×7 (07:40→20:51)
[2019-06-30] MEDS: Aspirin Enteric Coated 81 MG Tablet PO SCH (07:40)
[2019-06-30] MEDS ORDERED: Insulin DETEMIR 100 UNIT/ML X5UNITS SQ SCH (21:00)
[2019-07-01 04:58] LABS: Basophils % 0.5 %; Eosinophils # 0.3 K/mcL (0.0-0.6); Eosinophils % 3.4 %; Hematocrit 38.4 % (37.5-50.1); Hemoglobin 12.8 g/dL (12.9-16.9); Immature Granulocytes % 0.6 % (0-4); Lymphocytes # 2.2 K/mcL (0.6-4.6); Lymphocytes % 26.4 %; Mean Corpuscular HGB Conc 33.3 g/dL (31.6-35.5); Mean Corpuscular Hemoglobin 30.8 pg (28.0-33.3); Mean Corpuscular Volume 92.5 fL (83.0-100.0); Mean Platelet Volume 10.9 fL (9.4-12.4); Monocytes # 0.8 K/mcL (0.0-1.3); Neutrophils # 5.1 K/mcL (1.6-8.9); Platelet Count 213 K/mcL (140-400); Red Blood Count 4.15 M/mcL (4.19-5.50); Red Cell Distribution Width 13.5 % (11.5-14.5); Segmented Neutrophils % 60.1 %; White Blood Count 8.4 K/mcL (4.3-11.1)
[2019-07-01 05:08] LABS: BUN/Creatinine Ratio 24 (6-26); Blood Urea Nitrogen 21 mg/dL (6-20); Calcium 8.7 mg/dL (8.6-10.3); Carbon Dioxide 24 mEq/L (23-29); Chloride 101 mEq/L (98-107); Glucose 191 mg/dL (70-105); Osmolality,Calculated 296 (280-300); Potassium 4.1 mEq/L (3.5-5.1); Sodium 139 mEq/L (136-145); eGFR For African Americans > 60 (> 60); eGFR For Non-African Americans > 60 (> 60)
[2019-07-01] MEDS: *HR* Heparin 5,000 UNIT/ML VIAL SQ SCH (05:53)
[2019-07-01] MEDS: Metoprolol XL (24 HR) Succ 50 MG TAB.ER.24H PO SCH (08:00)
[2019-07-01] MEDS: Aspirin Enteric Coated 81 MG Tablet PO SCH (08:00)
[2019-07-01] MEDS: Insulin LISPRO 300 UNITS/3 ML VIAL SQ SCH ×4 (08:02→11:59)
[2019-07-01 15:42] VITALS: BP 117/76
== END 2019-07-01 16:59 ==
LOC: EMEROOARM 03:25 → 2NNU 03:25 → SUATTDRO 06:17 → 2NNU 08:28 → 3ANU 07-01 09:57
PROVIDERS: ADMIT Internal Medicine; ATTEND Internal Medicine

== ENCOUNTER 2020-03-15 13:00 | Observation (INO) ==
[2020-03-15 14:04] LABS: Basophils % 0.5 %; Eosinophils # 0.1 K/mcL (0.0-0.6); Eosinophils % 1.1 %; Hematocrit 47.5 % (37.5-50.1); Hemoglobin 15.1 g/dL (12.9-16.9); Immature Granulocytes % 0.2 % (0-4); Lymphocytes # 1.4 K/mcL (0.6-4.6); Lymphocytes % 16.8 %; Mean Corpuscular HGB Conc 31.8 g/dL (31.6-35.5); Mean Corpuscular Hemoglobin 29.8 pg (28.0-33.3); Mean Corpuscular Volume 93.7 fL (83.0-100.0); Mean Platelet Volume 10.5 fL (9.4-12.4); Monocytes # 0.5 K/mcL (0.0-1.3); Monocytes % 5.8 %; Neutrophils # 6.1 K/mcL (1.6-8.9); Platelet Count 235 K/mcL (140-400); Red Blood Count 5.07 M/mcL (4.19-5.50); Segmented Neutrophils % 75.6 %
[2020-03-15 14:20] LABS: Prothrombin Time 11.6 Seconds (9.4-12.1)
[2020-03-15 14:21] LABS: BUN/Creatinine Ratio 15 (6-26); Blood Urea Nitrogen 16 mg/dL (6-20); Calcium 9.3 mg/dL (8.6-10.3); Carbon Dioxide 25 mEq/L (23-29); Chloride 102 mEq/L (98-107); Glucose 182 mg/dL (70-105); Osmolality,Calculated 292 (280-300); Potassium 4.1 mEq/L (3.5-5.1); Sodium 138 mEq/L (136-145); eGFR For African Americans > 60 (> 60); eGFR For Non-African Americans > 60 (> 60)
[2020-03-15 14:23] LABS: Activated Partial Thrombo Time 38.5 Seconds (26.0-36.0)
[2020-03-15 14:33] LABS: Troponin I 0.04 ng/mL (< 0.04)
[2020-03-15 14:35] LABS: Thyroid Stimulating Hormone 3.486 mcIU/mL (0.340-5.600)
[2020-03-15 15:06] LABS: Magnesium 1.2 mg/dL (1.6-2.6)
[2020-03-15] MEDS ORDERED: Naloxone 0.4 MG/ML INJ IVP PRN (17:01)
[2020-03-15] MEDS ORDERED: Ondansetron 4 MG/2 ML VIAL IVP PRN (17:01)
[2020-03-15] MEDS ORDERED: D5% in Water 1,000 ML IVC PRN (17:05)
[2020-03-15] MEDS ORDERED: *HR* Dextrose 50 % in Water (Vial) 50 ML VIAL IVP PRN (17:05)
[2020-03-15] MEDS ORDERED: Dextrose Gel 15 GM/37.5 ML TUBE PO PRN ×2 (17:05)
[2020-03-15] MEDS ORDERED: 0.9 % Sodium Chloride 1,000 ML IVC SCH (17:15)
[2020-03-15] MEDS ORDERED: Perflutren Lipid Microsphere 1.3 ML in 0.9 % Sodium Chloride 8.7 ML IVP PRN (18:06)
[2020-03-15] MEDS ORDERED: Insulin LISPRO 300 UNITS/3 ML VIAL SQ SCH (21:00)
[2020-03-15] MEDS: *HR* Heparin 5,000 UNIT/ML VIAL SQ SCH (22:11)
[2020-03-15] MEDS: *HR* Metformin 500 MG TABLET PO SCH (22:55)
[2020-03-16 01:44] LABS: Basophils % 0.4 %; Eosinophils # 0.2 K/mcL (0.0-0.6); Eosinophils % 1.9 %; Hematocrit 40.6 % (37.5-50.1); Immature Granulocytes % 0.4 % (0-4); Lymphocytes # 2.4 K/mcL (0.6-4.6); Lymphocytes % 30.7 %; Mean Corpuscular HGB Conc 32.3 g/dL (31.6-35.5); Mean Corpuscular Hemoglobin 30.1 pg (28.0-33.3); Mean Corpuscular Volume 93.3 fL (83.0-100.0); Mean Platelet Volume 10.6 fL (9.4-12.4); Monocytes # 0.8 K/mcL (0.0-1.3); Monocytes % 10.2 %; Neutrophils # 4.4 K/mcL (1.6-8.9); Platelet Count 211 K/mcL (140-400); Red Blood Count 4.35 M/mcL (4.19-5.50); Red Cell Distribution Width 13.8 % (11.5-14.5); Segmented Neutrophils % 56.4 %; White Blood Count 7.8 K/mcL (4.3-11.1)
[2020-03-16 01:46] LABS: Hemoglobin 13.1 g/dL (12.9-16.9)
[2020-03-16 02:05] LABS: BUN/Creatinine Ratio 19 (6-26); Blood Urea Nitrogen 19 mg/dL (6-20); Calcium 8.7 mg/dL (8.6-10.3); Carbon Dioxide 25 mEq/L (23-29); Chloride 105 mEq/L (98-107); Chol/HDL Ratio 3.8 (0-4.9); Cholesterol 111 mg/dL (< 200); Glucose 153 mg/dL (70-105); HDL Cholesterol 29 mg/dL (40-59); LDL Cholesterol,Calculated 59 mg/dL (< 100); Magnesium 1.5 mg/dL (1.6-2.6); Osmolality,Calculated 291 (280-300); Phosphorous 3.2 mg/dL (2.7-4.5); Potassium 3.9 mEq/L (3.5-5.1); Sodium 138 mEq/L (136-145); Triglycerides 116 mg/dL (< 150); eGFR For African Americans > 60 (> 60); eGFR For Non-African Americans > 60 (> 60)
[2020-03-16 02:27] LABS: Folate 6.3 ng/mL (3.0-16.0)
[2020-03-16] MEDS: *HR* Heparin 5,000 UNIT/ML VIAL SQ SCH ×2 (05:24→15:34)
[2020-03-16] MEDS: *HR* Metformin 500 MG TABLET PO SCH (07:43)
[2020-03-16] MEDS: Insulin LISPRO 300 UNITS/3 ML VIAL SQ SCH ×3 (07:45→18:04)
[2020-03-16] MEDS ORDERED: FLUoxetine 20 MG CAPSULE PO SCH (09:00)
[2020-03-16] MEDS ORDERED: Aspirin Enteric Coated 81 MG Tablet PO SCH (09:00)
[2020-03-16] MEDS ORDERED: Cholecalciferol (D-3) 1,000 UNIT (25MCG) TABLET PO SCH (09:00)
[2020-03-16] MEDS ORDERED: lisinopriL 10 MG TABLET PO SCH (09:00)
[2020-03-16] MEDS ORDERED: Metoprolol XL (24 HR) Succ 50 MG TAB.ER.24H PO SCH (09:00)
[2020-03-16] MEDS ORDERED: clonazePAM 0.5 MG TABLET PO SCH (09:00)
[2020-03-16 13:47] LABS: Estimated Average Glucose 240 mg/dl
[2020-03-16 19:05] VITALS: BP 119/78
== END 2020-03-16 20:50 | disposition short-term general hospital (02) ==
LOC: EMEROOARM 13:00 → 2ANU 13:00
PROVIDERS: ADMIT Internal Medicine; ATTEND Internal Medicine

== ENCOUNTER 2020-07-07 16:53 | Inpatient (IN) ==
[2020-07-07] MEDS ORDERED: Furosemide 40 MG/4 ML VIAL IVP ONE (17:03)
[2020-07-07] MEDS ORDERED: Nitroglycerin 0.4 MG TAB.SUBL SL STA (17:03)
[2020-07-07 17:22] LABS: Basophils # 0.1 K/mcL (0.0-0.2); Basophils % 0.6 %; Eosinophils # 0.2 K/mcL (0.0-0.6); Eosinophils % 2.2 %; Hematocrit 43.5 % (37.5-50.1); Hemoglobin 13.8 g/dL (12.9-16.9); Immature Granulocytes % 0.4 % (0-4); Lymphocytes # 2.2 K/mcL (0.6-4.6); Lymphocytes % 24.1 %; Mean Corpuscular HGB Conc 31.7 g/dL (31.6-35.5); Mean Corpuscular Hemoglobin 27.1 pg (28.0-33.3); Mean Corpuscular Volume 85.3 fL (83.0-100.0); Mean Platelet Volume 11.5 fL (9.4-12.4); Monocytes # 0.6 K/mcL (0.0-1.3); Monocytes % 6.6 %; Neutrophils # 6.1 K/mcL (1.6-8.9); Platelet Count 210 K/mcL (140-400); Red Cell Distribution Width 15.3 % (11.5-14.5); Segmented Neutrophils % 66.1 %; White Blood Count 9.3 K/mcL (4.3-11.1)
[2020-07-07 17:50] LABS: BUN/Creatinine Ratio 17 (6-26); Blood Urea Nitrogen 23 mg/dL (6-20); Calcium 8.2 mg/dL (8.6-10.3); Carbon Dioxide 24 mEq/L (23-29); Chloride 100 mEq/L (98-107); Glucose 251 mg/dL (70-105); Osmolality,Calculated 298 (280-300); Potassium 3.9 mEq/L (3.5-5.1); Sodium 138 mEq/L (136-145); Troponin I < 0.03 ng/mL (< 0.04); eGFR For African Americans > 60 (> 60); eGFR For Non-African Americans 52 (> 60)
[2020-07-07] MEDS ORDERED: Isovue-370 500 ML BOTTLE IVP ONE (18:50)
[2020-07-07] MEDS ORDERED: *HR* Promethazine 25 MG/ML VIAL IM PRN (20:59)
[2020-07-07] MEDS ORDERED: Naloxone 0.4 MG/ML INJ IVP PRN (20:59)
[2020-07-07] MEDS ORDERED: Ondansetron 4 MG/2 ML VIAL IVP PRN (20:59)
[2020-07-08 02:29] LABS: Basophils # 0.1 K/mcL (0.0-0.2); Basophils % 0.6 %; Eosinophils # 0.2 K/mcL (0.0-0.6); Hematocrit 41.5 % (37.5-50.1); INR 1.4; Immature Granulocytes % 0.5 % (0-4); Lymphocytes % 24.9 %; Mean Corpuscular HGB Conc 31.3 g/dL (31.6-35.5); Mean Corpuscular Volume 86.1 fL (83.0-100.0); Mean Platelet Volume 11.3 fL (9.4-12.4); Monocytes # 0.6 K/mcL (0.0-1.3); Monocytes % 7.5 %; Neutrophils # 5.2 K/mcL (1.6-8.9); Platelet Count 186 K/mcL (140-400); Prothrombin Time 15.5 Seconds (9.4-12.1); Red Blood Count 4.82 M/mcL (4.19-5.50); Red Cell Distribution Width 15.1 % (11.5-14.5); Segmented Neutrophils % 64.5 %
[2020-07-08 02:53] LABS: Alanine Aminotransferase 16 Units/L (7-52); Albumin 3.9 g/dL (3.5-5.7); Albumin/Globulin Ratio 1.3 (1.1-2.2); Alkaline Phosphatase 102 Units/L (34-104); Aspartate Amino Transferase 17 Units/L (13-39); BUN/Creatinine Ratio 18 (6-26); Bilirubin,Total 0.6 mg/dL (0.3-1.0); Blood Urea Nitrogen 25 mg/dL (6-20); Calcium 8.1 mg/dL (8.6-10.3); Carbon Dioxide 29 mEq/L (23-29); Chloride 99 mEq/L (98-107); Chol/HDL Ratio 3.9 (0-4.9); Cholesterol 114 mg/dL (< 200); Globulin 2.9 g/dL (2.4-3.5); Glucose 228 mg/dL (70-105); HDL Cholesterol 29 mg/dL (40-59); LDL Cholesterol,Calculated 51 mg/dL (< 100); Osmolality,Calculated 298 (280-300); Potassium 3.5 mEq/L (3.5-5.1); Sodium 138 mEq/L (136-145); Total Protein 6.8 g/dL (6.4-8.9); Triglycerides 171 mg/dL (< 150); Troponin I < 0.03 ng/mL (< 0.04); eGFR For African Americans > 60 (> 60); eGFR For Non-African Americans 51 (> 60)
[2020-07-08] MEDS: Aspirin Enteric Coated 81 MG Tablet PO SCH (07:10)
[2020-07-08] MEDS: Furosemide 40 MG/4 ML VIAL IVP SCH ×2 (07:10→15:43)
[2020-07-08] MEDS ORDERED: D5% in Water 1,000 ML IVC PRN (08:13)
[2020-07-08] MEDS ORDERED: Dextrose Gel 15 GM/37.5 ML TUBE PO PRN ×2 (08:13)
[2020-07-08] MEDS ORDERED: *HR* Dextrose 50 % in Water (Vial) 50 ML VIAL IVP PRN (08:13)
[2020-07-08] MEDS ORDERED: Nitroglycerin 0.4 MG TAB.SUBL SL PRN (08:15)
[2020-07-08] MEDS: Insulin DETEMIR 100 UNIT/ML X5UNITS SUBQ SCH ×2 (08:56→20:43)
[2020-07-08] MEDS ORDERED: Metoprolol XL (24 HR) Succ 50 MG TAB.ER.24H PO SCH ×2 (09:00)
[2020-07-08] MEDS ORDERED: Metoprolol XL (24 HR) Succ 50 MG TAB.ER.24H PO ONE (10:00)
[2020-07-08] MEDS: Insulin LISPRO 300 UNITS/3 ML VIAL SUBQ SCH ×2 (11:53→15:01)
[2020-07-08] MEDS ORDERED: *HR* Digoxin 0.5 MG/2 ML AMPUL IVP ONE (14:02)
[2020-07-08] MEDS: clonazePAM 0.5 MG TABLET PO SCH (15:43)
[2020-07-08] MEDS: FLUoxetine 20 MG CAPSULE PO SCH (15:44)
[2020-07-08] MEDS ORDERED: *HR* Metoprolol 5 MG/5 ML VIAL IVP ONE (17:14)
[2020-07-08] MEDS: *HR* Heparin 5,000 UNIT/ML VIAL SQ SCH (17:53)
[2020-07-08] MEDS ORDERED: Amiodarone Premix 360 MG/200 ML BAG IVC ONE (18:33)
[2020-07-08] MEDS ORDERED: Amiodarone Premix 150 MG/100 ML BAG IVPB ONE (18:33)
[2020-07-08] MEDS: Metoprolol XL (24 HR) Succ 50 MG TAB.ER.24H PO SCH (21:42)
[2020-07-09] MEDS ORDERED: Amiodarone Premix 360 MG/200 ML BAG IVC SCH (00:16)
[2020-07-09] MEDS: *HR* Heparin 5,000 UNIT/ML VIAL SQ SCH (05:14)
[2020-07-09 06:22] LABS: Basophils % 0.5 %; Eosinophils # 0.2 K/mcL (0.0-0.6); Eosinophils % 2.7 %; Hematocrit 43.6 % (37.5-50.1); Hemoglobin 13.4 g/dL (12.9-16.9); Immature Granulocytes % 0.4 % (0-4); Lymphocytes # 2.1 K/mcL (0.6-4.6); Lymphocytes % 26.4 %; Mean Corpuscular HGB Conc 30.7 g/dL (31.6-35.5); Mean Corpuscular Hemoglobin 26.5 pg (28.0-33.3); Mean Corpuscular Volume 86.3 fL (83.0-100.0); Monocytes # 0.6 K/mcL (0.0-1.3); Neutrophils # 4.9 K/mcL (1.6-8.9); Platelet Count 194 K/mcL (140-400); Red Blood Count 5.05 M/mcL (4.19-5.50); Red Cell Distribution Width 15.2 % (11.5-14.5); White Blood Count 7.9 K/mcL (4.3-11.1)
[2020-07-09 06:43] LABS: BUN/Creatinine Ratio 22 (6-26); Blood Urea Nitrogen 32 mg/dL (6-20); Calcium 8.7 mg/dL (8.6-10.3); Carbon Dioxide 30 mEq/L (23-29); Chloride 97 mEq/L (98-107); Glucose 182 mg/dL (70-105); Magnesium 1.4 mg/dL (1.6-2.6); Osmolality,Calculated 296 (280-300); Phosphorous 4.3 mg/dL (2.7-4.5); Potassium 3.5 mEq/L (3.5-5.1); Sodium 137 mEq/L (136-145); eGFR For African Americans > 60 (> 60); eGFR For Non-African Americans 51 (> 60)
[2020-07-09] MEDS: Cholecalciferol (D-3) 1,000 UNIT (25MCG) TABLET PO SCH (08:48)
[2020-07-09] MEDS: FLUoxetine 20 MG CAPSULE PO SCH (08:48)
[2020-07-09] MEDS: clonazePAM 0.5 MG TABLET PO SCH (08:48)
[2020-07-09] MEDS: Metoprolol XL (24 HR) Succ 50 MG TAB.ER.24H PO SCH ×2 (08:48→21:13)
[2020-07-09] MEDS: Aspirin Enteric Coated 81 MG Tablet PO SCH (08:48)
[2020-07-09] MEDS: Insulin LISPRO 300 UNITS/3 ML VIAL SUBQ SCH ×2 (08:55→11:54)
[2020-07-09] MEDS: Insulin DETEMIR 100 UNIT/ML X5UNITS SUBQ SCH (08:55)
[2020-07-09] MEDS ORDERED: Apixaban 5 MG TABLET PO SCH (09:00)
[2020-07-09] MEDS ORDERED: Metoprolol XL (24 HR) Succ 50 MG TAB.ER.24H PO SCH (09:10)
[2020-07-09] MEDS ORDERED: *HR* Heparin 5,000 UNIT/ML VIAL IVP PRN ×2 (09:33)
[2020-07-09] MEDS ORDERED: *HR* Heparin 5,000 UNIT/ML VIAL IVP ONE (09:33)
[2020-07-09] MEDS ORDERED: Heparin 25,000UNIT/250ML 1/2NS 25,000 UNIT/250 ML IV.SOLN IVC SCH (09:45)
[2020-07-09] MEDS: Furosemide 40 MG/4 ML VIAL IVP SCH ×2 (10:05→17:29)
[2020-07-09] MEDS: *HR* Digoxin 0.5 MG/2 ML AMPUL IVP SCH ×2 (11:57→17:29)
[2020-07-09 12:03] LABS: Hematocrit 42.5 % (37.5-50.1); Hemoglobin 13.3 g/dL (12.9-16.9); Mean Corpuscular HGB Conc 31.3 g/dL (31.6-35.5); Mean Corpuscular Hemoglobin 26.6 pg (28.0-33.3); Mean Platelet Volume 11.7 fL (9.4-12.4); Platelet Count 201 K/mcL (140-400); Red Cell Distribution Width 15.1 % (11.5-14.5); White Blood Count 8.2 K/mcL (4.3-11.1)
[2020-07-09 12:09] LABS: Heparin anti-factor XA UFH < 0.04 IU/mL (0.30-0.70)
[2020-07-09 12:10] LABS: INR 1.2; Prothrombin Time 13.9 Seconds (9.4-12.1)
[2020-07-09] MEDS ORDERED: *HR* Warfarin 5 MG TABLET PO ONE (18:00)
[2020-07-09] MEDS ORDERED: *HR* Heparin 5,000 UNIT/ML VIAL SQ SCH (18:00)
[2020-07-09] MEDS ORDERED: Warfarin perPT PO PRN (18:00)
[2020-07-09] MEDS: *HR* Metformin 500 MG TABLET PO SCH (21:13)
[2020-07-10] MEDS: *HR* Digoxin 0.5 MG/2 ML AMPUL IVP SCH (00:01)
[2020-07-10 07:25] LABS: Hematocrit 43.2 % (37.5-50.1); Hemoglobin 13.9 g/dL (12.9-16.9)
[2020-07-10 07:32] LABS: INR 1.3; Prothrombin Time 14.4 Seconds (9.4-12.1)
[2020-07-10 07:43] LABS: BUN/Creatinine Ratio 27 (6-26); Blood Urea Nitrogen 34 mg/dL (6-20); Calcium 8.7 mg/dL (8.6-10.3); Carbon Dioxide 30 mEq/L (23-29); Chloride 98 mEq/L (98-107); Glucose 169 mg/dL (70-105); Magnesium 1.5 mg/dL (1.6-2.6); Osmolality,Calculated 298 (280-300); Phosphorous 3.6 mg/dL (2.7-4.5); Potassium 3.6 mEq/L (3.5-5.1); Sodium 138 mEq/L (136-145); eGFR For African Americans > 60 (> 60); eGFR For Non-African Americans 59 (> 60)
[2020-07-10] MEDS: Cholecalciferol (D-3) 1,000 UNIT (25MCG) TABLET PO SCH (08:47)
[2020-07-10] MEDS: Aspirin Enteric Coated 81 MG Tablet PO SCH (08:48)
[2020-07-10] MEDS: *HR* Metformin 500 MG TABLET PO SCH ×2 (08:48→20:31)
[2020-07-10] MEDS: clonazePAM 0.5 MG TABLET PO SCH (08:48)
[2020-07-10] MEDS: FLUoxetine 20 MG CAPSULE PO SCH (08:48)
[2020-07-10] MEDS: Metoprolol XL (24 HR) Succ 50 MG TAB.ER.24H PO SCH ×2 (08:48→20:31)
[2020-07-10] MEDS: Furosemide 40 MG/4 ML VIAL IVP SCH ×2 (08:49→18:06)
[2020-07-10] MEDS: Magnesium Oxide 400 MG TABLET PO SCH ×2 (08:58→20:31)
[2020-07-10] MEDS ORDERED: *HR* Warfarin 5 MG TABLET PO ONE (18:00)
[2020-07-10] MEDS: *HR* Enoxaparin 120 MG/0.8 ML SYRINGE SQ SCH (18:06)
[2020-07-11 02:59] LABS: INR 1.3; Prothrombin Time 14.6 Seconds (9.4-12.1)
[2020-07-11 03:12] LABS: Digoxin 1.3 ng/mL (0.8-2.0)
[2020-07-11 03:33] LABS: BUN/Creatinine Ratio 26 (6-26); Blood Urea Nitrogen 32 mg/dL (6-20); Calcium 8.9 mg/dL (8.6-10.3); Carbon Dioxide 29 mEq/L (23-29); Chloride 99 mEq/L (98-107); Glucose 159 mg/dL (70-105); Magnesium 1.7 mg/dL (1.6-2.6); Osmolality,Calculated 294 (280-300); Phosphorous 3.6 mg/dL (2.7-4.5); Potassium 3.6 mEq/L (3.5-5.1); Sodium 137 mEq/L (136-145); eGFR For African Americans > 60 (> 60); eGFR For Non-African Americans > 60 (> 60)
[2020-07-11] MEDS: *HR* Enoxaparin 120 MG/0.8 ML SYRINGE SQ SCH ×2 (06:32→18:54)
[2020-07-11] MEDS: Furosemide 40 MG/4 ML VIAL IVP SCH ×2 (10:11→18:54)
[2020-07-11] MEDS: clonazePAM 0.5 MG TABLET PO SCH (10:13)
[2020-07-11] MEDS: Cholecalciferol (D-3) 1,000 UNIT (25MCG) TABLET PO SCH (10:13)
[2020-07-11] MEDS: FLUoxetine 20 MG CAPSULE PO SCH (10:13)
[2020-07-11] MEDS: Aspirin Enteric Coated 81 MG Tablet PO SCH (10:13)
[2020-07-11] MEDS: Magnesium Oxide 400 MG TABLET PO SCH ×2 (10:13→20:34)
[2020-07-11] MEDS: Metoprolol XL (24 HR) Succ 50 MG TAB.ER.24H PO SCH ×2 (10:13→20:35)
[2020-07-11] MEDS: *HR* Metformin 500 MG TABLET PO SCH ×2 (10:14→20:35)
[2020-07-11] MEDS: lisinopriL 5 MG TABLET PO SCH (14:30)
[2020-07-11] MEDS ORDERED: *HR* Warfarin 7.5 MG TABLET PO ONE (18:00)
[2020-07-12 05:11] LABS: Hematocrit 43.3 % (37.5-50.1); Hemoglobin 13.4 g/dL (12.9-16.9)
[2020-07-12 05:16] LABS: INR 1.3
[2020-07-12 05:34] LABS: BUN/Creatinine Ratio 25 (6-26); Blood Urea Nitrogen 30 mg/dL (6-20); Calcium 9.4 mg/dL (8.6-10.3); Carbon Dioxide 31 mEq/L (23-29); Chloride 98 mEq/L (98-107); Glucose 155 mg/dL (70-105); Magnesium 1.7 mg/dL (1.6-2.6); Osmolality,Calculated 293 (280-300); Phosphorous 3.5 mg/dL (2.7-4.5); Potassium 3.6 mEq/L (3.5-5.1); Sodium 137 mEq/L (136-145); eGFR For African Americans > 60 (> 60); eGFR For Non-African Americans > 60 (> 60)
[2020-07-12] MEDS: *HR* Enoxaparin 120 MG/0.8 ML SYRINGE SQ SCH ×2 (06:03→17:57)
[2020-07-12] MEDS: Furosemide 40 MG/4 ML VIAL IVP SCH ×2 (10:04→16:39)
[2020-07-12] MEDS: clonazePAM 0.5 MG TABLET PO SCH (10:05)
[2020-07-12] MEDS: Cholecalciferol (D-3) 1,000 UNIT (25MCG) TABLET PO SCH (10:05)
[2020-07-12] MEDS: *HR* Metformin 500 MG TABLET PO SCH ×2 (10:05→20:51)
[2020-07-12] MEDS: Aspirin Enteric Coated 81 MG Tablet PO SCH (10:05)
[2020-07-12] MEDS: FLUoxetine 20 MG CAPSULE PO SCH (10:05)
[2020-07-12] MEDS: Metoprolol XL (24 HR) Succ 50 MG TAB.ER.24H PO SCH ×2 (10:05→20:52)
[2020-07-12] MEDS: Magnesium Oxide 400 MG TABLET PO SCH ×2 (10:06→20:51)
[2020-07-12] MEDS: lisinopriL 5 MG TABLET PO SCH (10:06)
[2020-07-12] MEDS ORDERED: Lidocaine Viscous Oral Soln 15 ML SOLUTION MM PRN (13:02)
[2020-07-12] MEDS ORDERED: 0.9 % Sodium Chloride 500 ML IVC ONE (13:03)
[2020-07-12] MEDS: *HR* FentaNYL (PF) 100 MCG/2 ML VIAL IVP PRN ×2 (13:35→13:55)
[2020-07-12] MEDS: *HR* Midazolam HCl 5 MG/5 ML VIAL IVP PRN ×3 (13:35→13:55)
[2020-07-12] MEDS ORDERED: Amiodarone Premix 360 MG/200 ML BAG IVC ONE (14:07)
[2020-07-12] MEDS ORDERED: *HR* Warfarin 7.5 MG TABLET PO ONE (18:00)
[2020-07-12] MEDS: Amiodarone Premix 360 MG/200 ML BAG IVC SCH (22:06)
[2020-07-13 02:27] LABS: INR 1.7; Prothrombin Time 19.5 Seconds (9.4-12.1)
[2020-07-13 02:28] LABS: Hematocrit 40.6 % (37.5-50.1); Hemoglobin 12.8 g/dL (12.9-16.9)
[2020-07-13 02:46] LABS: BUN/Creatinine Ratio 23 (6-26); Blood Urea Nitrogen 27 mg/dL (6-20); Calcium 9.1 mg/dL (8.6-10.3); Carbon Dioxide 30 mEq/L (23-29); Chloride 97 mEq/L (98-107); Glucose 184 mg/dL (70-105); Magnesium 1.6 mg/dL (1.6-2.6); Osmolality,Calculated 292 (280-300); Phosphorous 3.6 mg/dL (2.7-4.5); Potassium 3.9 mEq/L (3.5-5.1); Sodium 136 mEq/L (136-145); eGFR For African Americans > 60 (> 60); eGFR For Non-African Americans > 60 (> 60)
[2020-07-13] MEDS: *HR* Enoxaparin 120 MG/0.8 ML SYRINGE SQ SCH ×2 (06:10→17:16)
[2020-07-13] MEDS: Furosemide 40 MG/4 ML VIAL IVP SCH (07:36)
[2020-07-13] MEDS: clonazePAM 0.5 MG TABLET PO SCH (07:36)
[2020-07-13] MEDS: *HR* Metformin 500 MG TABLET PO SCH ×2 (07:37→20:59)
[2020-07-13] MEDS: Aspirin Enteric Coated 81 MG Tablet PO SCH (07:37)
[2020-07-13] MEDS: FLUoxetine 20 MG CAPSULE PO SCH (07:37)
[2020-07-13] MEDS: Magnesium Oxide 400 MG TABLET PO SCH ×2 (07:37→20:59)
[2020-07-13] MEDS: Metoprolol XL (24 HR) Succ 50 MG TAB.ER.24H PO SCH ×2 (07:37→20:59)
[2020-07-13] MEDS: Cholecalciferol (D-3) 1,000 UNIT (25MCG) TABLET PO SCH (07:38)
[2020-07-13] MEDS: lisinopriL 5 MG TABLET PO SCH (07:38)
[2020-07-13] MEDS: Amiodarone Premix 360 MG/200 ML BAG IVC SCH (10:16)
[2020-07-13] MEDS: *HR* Amiodarone 200 MG TABLET PO SCH ×2 (11:05→20:59)
[2020-07-13] MEDS: Furosemide 40 MG TABLET PO SCH (17:17)
[2020-07-13] MEDS ORDERED: *HR* Warfarin 7.5 MG TABLET PO ONE (18:00)
[2020-07-14] MEDS: *HR* Enoxaparin 120 MG/0.8 ML SYRINGE SQ SCH (04:58)
[2020-07-14 06:12] LABS: INR 2.4; Prothrombin Time 27.3 Seconds (9.4-12.1)
[2020-07-14 06:23] LABS: BUN/Creatinine Ratio 22 (6-26); Blood Urea Nitrogen 26 mg/dL (6-20); Calcium 9.6 mg/dL (8.6-10.3); Carbon Dioxide 31 mEq/L (23-29); Chloride 97 mEq/L (98-107); Glucose 155 mg/dL (70-105); Magnesium 1.6 mg/dL (1.6-2.6); Osmolality,Calculated 290 (280-300); Phosphorous 3.1 mg/dL (2.7-4.5); Potassium 3.8 mEq/L (3.5-5.1); Sodium 136 mEq/L (136-145); eGFR For African Americans > 60 (> 60); eGFR For Non-African Americans > 60 (> 60)
[2020-07-14 07:31] VITALS: BP 100/62
[2020-07-14] MEDS: Cholecalciferol (D-3) 1,000 UNIT (25MCG) TABLET PO SCH (07:32)
[2020-07-14] MEDS: *HR* Metformin 500 MG TABLET PO SCH (07:32)
[2020-07-14] MEDS: lisinopriL 5 MG TABLET PO SCH (07:32)
[2020-07-14] MEDS: FLUoxetine 20 MG CAPSULE PO SCH (07:32)
[2020-07-14] MEDS: clonazePAM 0.5 MG TABLET PO SCH (07:33)
[2020-07-14] MEDS: Magnesium Oxide 400 MG TABLET PO SCH (07:33)
[2020-07-14] MEDS: Furosemide 40 MG TABLET PO SCH (07:33)
[2020-07-14] MEDS: Aspirin Enteric Coated 81 MG Tablet PO SCH (07:33)
[2020-07-14] MEDS: *HR* Amiodarone 200 MG TABLET PO SCH (07:33)
[2020-07-14] MEDS: Metoprolol XL (24 HR) Succ 50 MG TAB.ER.24H PO SCH (07:33)
[2020-07-14] MEDS ORDERED: *HR* Warfarin 5 MG TABLET PO ONE (18:00)
== END 2020-07-14 12:40 | disposition home or self-care (01) | DRG 291 ==
LOC: EMEROOARM 16:53 → 2ANU 16:53 → SUATTDRO 20:56 → 2ANU 21:19 → 2NNU 07-08 20:11 → SUATTDRO 07-11 14:24 → 2ANU 07-12 14:46 → 2NNU 07-12 16:23
PROVIDERS: ADMIT Internal Medicine Nephrology; ATTEND Pharmacist

== ENCOUNTER 2022-02-13 17:03 | Observation (INO) ==
[2022-02-13] MEDS ORDERED: Ondansetron 4 MG/2 ML VIAL IVP ONE (18:16)
[2022-02-13] MEDS ORDERED: 0.9 % Sodium Chloride 500 ML IVC ONE ×2 (18:16→20:01)
[2022-02-13 18:29] LABS: Basophils # 0.1 K/mcL (0.0-0.2); Basophils % 0.7 %; Eosinophils # 0.2 K/mcL (0.0-0.6); Eosinophils % 3.1 %; Hematocrit 40.1 % (37.5-50.1); Hemoglobin 13.5 g/dL (12.9-16.9); Immature Granulocytes % 0.4 % (0-4); Lymphocytes % 29.6 %; Mean Corpuscular HGB Conc 33.7 g/dL (31.6-35.5); Mean Corpuscular Hemoglobin 30.3 pg (28.0-33.3); Mean Corpuscular Volume 89.9 fL (83.0-100.0); Mean Platelet Volume 10.4 fL (9.4-12.4); Monocytes # 0.8 K/mcL (0.0-1.3); Monocytes % 11.3 %; Neutrophils # 3.7 K/mcL (1.6-8.9); Platelet Count 186 K/mcL (140-400); Red Blood Count 4.46 M/mcL (4.19-5.50); Red Cell Distribution Width 14.7 % (11.5-14.5); Segmented Neutrophils % 54.9 %; White Blood Count 6.7 K/mcL (4.3-11.1)
[2022-02-13 18:32] LABS: VBG Ionized Calcium 1.13 mmol/L (1.15-1.35)
[2022-02-13 18:59] LABS: BUN/Creatinine Ratio 20 (6-26); Blood Urea Nitrogen 56 mg/dL (8-23); Calcium 9.2 mg/dL (8.6-10.3); Carbon Dioxide 24 mEq/L (23-29); Chloride 99 mEq/L (98-107); Glucose 155 mg/dL (70-105); Magnesium 1.4 mg/dL (1.6-2.6); Osmolality,Calculated 299 (280-300); Potassium 4.5 mEq/L (3.5-5.1); Sodium 135 mEq/L (136-145); Troponin I < 0.03 ng/mL (< 0.04); eGFR For African Americans 27 (> 60); eGFR For Non-African Americans 23 (> 60)
[2022-02-13 19:11] LABS: Thyroid Stimulating Hormone 6.252 mcIU/mL (0.340-5.600)
[2022-02-13 19:21] LABS: INR 1.8; Prothrombin Time 19.6 Seconds (9.4-12.1)
[2022-02-13 19:24] LABS: Activated Partial Thrombo Time 40.5 Seconds (26.0-36.0)
[2022-02-13 22:13] LABS: Calcium 8.4 mg/dL (8.6-10.3); Potassium 4.7 mEq/L (3.5-5.1)
[2022-02-14] MEDS ORDERED: Melatonin 3 MG TABLET PO PRN (00:12)
[2022-02-14] MEDS ORDERED: Ondansetron ODT 4 MG TAB.RAPDIS SL PRN (00:12)
[2022-02-14] MEDS ORDERED: Naloxone 0.4 MG/ML INJ IVP PRN (00:12)
[2022-02-14] MEDS ORDERED: SULFUR HEXAFLUORIDE MICROSPHR 25 MG VIAL IVP PRN (00:14)
[2022-02-14] MEDS ORDERED: Magnesium Sulfate 1 GM/102 ML PIGGYBACK IVPB ONE (00:34)
[2022-02-14] MEDS: 0.9 % Sodium Chloride 1,000 ML IVC SCH ×2 (01:38→11:34)
[2022-02-14 01:58] LABS: Bacteria,Urine Few per hpf (None-Few); Bilirubin,Urine Negative (Negative); Blood,Urine Negative (Negative); Clarity,Urine Clear (Clear); Color,Urine Yellow (Yellow); Glucose,Urine (UA) Normal (Normal); Hyaline Casts,Urine Many per lpf (None Seen); Ketones,Urine Negative (Negative); Leukocyte Esterase,Urine Negative (Negative); Mucus,Urine Few per lpf (None-Few); Nitrite,Urine Negative (Negative); PH,Urine 5.5 pH Units (5.0-8.0); Protein,Urine 50 mg/dL (Neg-Trace); RBC,Urine 0-3 per hpf (0-3); Specific Gravity,Urine 1.016 (1.010-1.025); Squamous Epithelial Cell,Urine Few per hpf (None-Few); Urobilinogen,Urine Normal (Normal); WBC,Urine 0-3 per hpf (0-3)
[2022-02-14 02:06] LABS: Sodium, Urine 66.6 mEq/L
[2022-02-14] MEDS ORDERED: *HR* LORazepam 2 MG/ML VIAL IVP PRN ×3 (03:36→04:00)
[2022-02-14 05:53] LABS: Basophils # 0.1 K/mcL (0.0-0.2); Basophils % 0.9 %; Eosinophils # 0.2 K/mcL (0.0-0.6); Eosinophils % 3.5 %; Hematocrit 38.8 % (37.5-50.1); Hemoglobin 12.6 g/dL (12.9-16.9); Immature Granulocytes % 0.5 % (0-4); Lymphocytes # 2.3 K/mcL (0.6-4.6); Lymphocytes % 40.2 %; Mean Corpuscular HGB Conc 32.5 g/dL (31.6-35.5); Mean Corpuscular Hemoglobin 29.9 pg (28.0-33.3); Mean Corpuscular Volume 91.9 fL (83.0-100.0); Mean Platelet Volume 10.2 fL (9.4-12.4); Monocytes # 0.7 K/mcL (0.0-1.3); Monocytes % 11.5 %; Neutrophils # 2.4 K/mcL (1.6-8.9); Platelet Count 163 K/mcL (140-400); Red Blood Count 4.22 M/mcL (4.19-5.50); Red Cell Distribution Width 15.1 % (11.5-14.5); Segmented Neutrophils % 43.4 %; White Blood Count 5.6 K/mcL (4.3-11.1)
[2022-02-14 06:01] LABS: INR 1.7; Prothrombin Time 18.9 Seconds (9.4-12.1)
[2022-02-14 06:46] LABS: Albumin 3.7 g/dL (3.5-5.7); Albumin/Globulin Ratio 1.5 (1.1-2.2); Bilirubin,Total 0.4 mg/dL (0.3-1.0); Calcium 8.6 mg/dL (8.6-10.3); Globulin 2.5 g/dL (2.4-3.5); Magnesium 1.8 mg/dL (1.6-2.6); Potassium 4.9 mEq/L (3.5-5.1); Total Protein 6.2 g/dL (6.4-8.9)
[2022-02-14] MEDS: *HR* Amiodarone 200 MG TABLET PO SCH (11:32)
[2022-02-14] MEDS: FLUoxetine 20 MG CAPSULE PO SCH (11:32)
[2022-02-14] MEDS: Amoxicillin 500 MG CAPSULE PO SCH ×2 (11:33→17:25)
[2022-02-14] MEDS: Aspirin Enteric Coated 81 MG Tablet PO SCH (11:33)
[2022-02-14] MEDS: clonazePAM 0.5 MG TABLET PO PRN (11:41)
[2022-02-14] MEDS ORDERED: *HR* Warfarin 2 MG TABLET PO ONE (18:00)
[2022-02-14] MEDS ORDERED: Warfarin 2.5 MG, Warfarin 2 MG PO ONE (18:00)
[2022-02-14] MEDS ORDERED: Warfarin perPT PO PRN (18:00)
[2022-02-14] MEDS ORDERED: *HR* Warfarin 2.5 MG TABLET PO ONE (18:00)
[2022-02-15] MEDS: Amoxicillin 500 MG CAPSULE PO SCH ×2 (00:17→08:29)
[2022-02-15 05:54] LABS: INR 1.8
[2022-02-15 08:02] LABS: Calcium 8.9 mg/dL (8.6-10.3); Magnesium 1.6 mg/dL (1.6-2.6); Phosphorous 2.2 mg/dL (2.7-4.5); Potassium 4.7 mEq/L (3.5-5.1)
[2022-02-15] MEDS: *HR* Amiodarone 200 MG TABLET PO SCH (08:29)
[2022-02-15] MEDS: Aspirin Enteric Coated 81 MG Tablet PO SCH (08:29)
[2022-02-15] MEDS: FLUoxetine 20 MG CAPSULE PO SCH (08:29)
[2022-02-15] MEDS: clonazePAM 0.5 MG TABLET PO PRN (08:33)
[2022-02-15] MEDS: Metoprolol XL (24 HR) Succ 50 MG TAB.ER.24H PO SCH (10:46)
[2022-02-15] MEDS ORDERED: 0.9 % Sodium Chloride 1,000 ML IVC SCH (14:45)
[2022-02-15] MEDS ORDERED: *HR* Warfarin 3 MG TABLET PO ONE (18:00)
[2022-02-15 23:29] VITALS: O2SAT 97
[2022-02-16 06:15] LABS: INR 1.9; Prothrombin Time 21.4 Seconds (9.4-12.1)
[2022-02-16 06:19] LABS: Calcium 8.7 mg/dL (8.6-10.3); Magnesium 1.4 mg/dL (1.6-2.6); Phosphorous 2.6 mg/dL (2.7-4.5); Potassium 4.7 mEq/L (3.5-5.1)
[2022-02-16 07:11] VITALS: BP 114/77; PULSE 84; TEMP 97.8
[2022-02-16] MEDS: clonazePAM 0.5 MG TABLET PO PRN (07:52)
[2022-02-16] MEDS: *HR* Amiodarone 200 MG TABLET PO SCH (07:53)
[2022-02-16] MEDS: Metoprolol XL (24 HR) Succ 50 MG TAB.ER.24H PO SCH (07:53)
[2022-02-16] MEDS: Aspirin Enteric Coated 81 MG Tablet PO SCH (07:53)
[2022-02-16] MEDS: FLUoxetine 20 MG CAPSULE PO SCH (07:54)
[2022-02-16] MEDS ORDERED: *HR* Warfarin 3 MG TABLET PO ONE (18:00)
== END 2022-02-16 10:36 | disposition home or self-care (01) ==
LOC: EMEROOARM 17:03 → 3BNU 17:03 → 4WAOSI 17:03 → SUATTDRO 02-14 11:28 → 3BNU 02-14 12:13
PROVIDERS: ADMIT Internal Medicine; ATTEND Hospitalist